=== PATIENT | female | born 1970 | race African-American/Black ===

== ENCOUNTER 2022-06-22 02:25 | Emergency (ER) | payer MEDICAID ==
[~2022-06-22] VITALS: Ht 149.9 cm; Wt 38.3 kg
[2022-06-22 03:12] VITALS: BP 117/78
[2022-06-22] MEDS ORDERED: KETOROLAC 60MG/2ML VIAL IM ONE (03:15)
[2022-06-22] MEDS ORDERED: ALBU6.7H3 INH (05:09)
[2022-06-22] MEDS ORDERED: TC025C15 TP (05:09)
[2022-06-22] MEDS ORDERED: GABA-529 MT (05:09)
[2022-06-22] MEDS ORDERED: IBUP-1521 MT (05:09)
== END 2022-06-22 05:26 | disposition home or self-care (01) ==
LOC: ER 02:25
DX: M54.2 Cervicalgia (principal); J45.909 Unspecified asthma, uncomplicated; F17.200 Nicotine dependence, unspecified, uncomplicated
CPT/HCPCS: 73030; 81025; 96372; 99283; J1885; Z7610